=== PATIENT | male | born 1955 | race Caucasian/White ===

== ENCOUNTER 2019-05-07 20:20 | Emergency (ER) | payer OTHER ==
--- NOTE | 2019-05-07 20:53 | EDM.PDOC ---
ED HPI GENERAL MEDICAL PROBLEM - General Chief Complaint: Lower Extremity Injury/Pain Stated Complaint: FALL Time Seen by Provider: 05/07/19 20:40 - History of Present Illness INITIAL COMMENTS - FREE TEXT/NARRATIVE: HISTORY AND PHYSICAL: History of present illness: The patient is a 64-year-old male who presents with complaints of pain to his right foot that occurred on the job at his workplace after he sustained a fall from approximately 10 feet into a tank of fluid impacting his right foot at approximately 4:30, 4 hours ago. The patient says he did not hit his head pass out or blackout and he fell through a cat walk it was over this tank and then he subsequently fell into the tank landing with full weight onto his right foot. He did not hit his head neck or back and has no head neck or back pain and more specifically has no pelvis hip pain or lower back pain. He says he has no proximal right leg knee or hip pain and has only pain in the arch of his right foot when he tries to move it. He denies specific ankle pain or toe pain. He has not taken anything for the pain prior to coming here and he has been ambulating on it. He says that prior to these events he was in his usual state of good health with no systemic issues and currently has no chest pain shortness of breath abdominal pain dizziness or lightheadedness and no other complaints whatsoever other than the pain at the arch of his right foot. He says that his foot is not numb or tingly and when he is just sitting in bed there is no discomfort but only when he puts weight or tries to dorsi or plantar flex his foot. Review of systems: As per history of present illness and below otherwise all systems reviewed and negative. Past medical history: As per history of present illness and as reviewed below otherwise noncontributory. Surgical history: As per history of present illness and as reviewed below otherwise noncontributory. Social history: No reported history of drug or alcohol abuse. Family history: As per history of present illness and as reviewed below otherwise noncontributory. Physical exam: General: Well-developed well-nourished man who is nontoxic and vital signs are noted by me. HEENT: Atraumatic, normocephalic, negative for conjunctival pallor or scleral icterus, mucous membranes moist, throat clear, neck supple, nontender, trachea midline. There are no midline step-offs in his defects of the cervical spine Lungs: Clear to auscultation, breath sounds equal bilaterally, chest nontender. Heart: S1S2, regular rate and rhythm no overt murmurs Abdomen: Soft, nondistended, nontender. Negative for masses or hepatosplenomegaly. Negative for costovertebral tenderness. Pelvis: Stable nontender. There is no lateral hip tenderness or SI joint tenderness posteriorly on the lower back Genitourinary: Deferred. Rectal: Deferred. Extremities: Atraumatic and full range of motion of all extremities with the exception of the right foot where there is tenderness to palpation in the cuboids dorsally and in the arch of the foot but no ecchymosis soft tissue swelling or erythema is seen. The ball of the foot and the toes are intact without tenderness defects or deformities as is the calcaneus and the talus. The proximal ankle has no tenderness defects or deformities as does the proximal tib-fib knee thigh and hip on the right. The patient can dorsi and plantar flex with good strength but says that there is discomfort with this. The Achilles tendon is palpable and intact. The legs are, negative for cords or calf pain. Neurovascular unremarkable. Neuro: Awake, alert, oriented. Cranial nerves II through XII unremarkable. Cerebellum unremarkable. Motor and sensory unremarkable throughout. Exam nonfocal. Back: There are no midline step-offs tenderness defects of the thoracic or lumbar spine and no posterior pelvis tenderness Diagnostics: X-ray right foot and right rib Therapeutics: Ice pack to foot, patient declined pain medication on initial evaluation and upon discharge would like ibuprofen Ortho boot and crutches Impression: Right foot injury Definitive disposition and diagnosis as appropriate pending reevaluation and review of above. R foot Pain Score (Numeric/FACES): 10 - Related Data Allergies Allergy/AdvReac Type Severity Reaction Status Date / Time No Known Allergies Allergy Verified 05/07/19 20:42 Home Meds: Home Meds . [No Known Home Meds] 05/07/19 [History] Past Medical History - Past Health History Medical/Surgical History: Denies Medical/Surgical History Gastrointestinal History: Reports: GERD - Infectious Disease History Infectious Disease History: Reports: Chicken Pox, Measles Social & Family History - Tobacco Use Smoking Status *Q: Former Smoker Used Tobacco, but Quit: Yes Month/Year Tobacco Last Used: 2014 - Caffeine Use Caffeine Use: Reports: Coffee - Recreational Drug Use Recreational Drug Use: No Review of Systems - Review of Systems Review Of Systems: ROS reveals no pertinent complaints other than HPI. ED EXAM, GENERAL - Physical Exam Exam: See Below (See dictation) Course - Vital Signs Last Recorded V/S: Last Vital Signs Temp 36.6 C 05/07/19 20:37 Pulse 98 05/07/19 20:37 Resp 16 05/07/19 20:37 BP 154/79 H 05/07/19 20:37 Pulse Ox 97 05/07/19 20:37 - Orders/Labs/Meds Orders: Active Orders 24 hr Category Date Time Status Ibuprofen [Motrin] Med 05/07/19 21:38 Once 800 mg PO ONETIME ONE DME for Discharge [COMM] Stat Oth 05/07/19 21:36 Ordered Departure - Departure Time of Disposition: 21:39 Disposition: Home, Self-Care 01 Condition: Good Clinical Impression: Right foot injury Qualifiers: Encounter type: initial encounter Qualified Code(s): S99.921A - Unspecified injury of right foot, initial encounter - Discharge Information Referrals: PCP,None [Primary Care Provider] - Forms: ED Department Discharge Additional Instructions: The following information is given to patients seen in the emergency department who are being discharged to home. This information is to outline your options for follow-up care. We provide all patients seen in our emergency department with a follow-up referral. The need for follow-up, as well as the timing and circumstances, are variable depending upon the specifics of your emergency department visit. If you don't have a primary care physician on staff, we will provide you with a referral. We always advise you to contact your personal physician following an emergency department visit to inform them of the circumstance of the visit and for follow-up with them and/or the need for any referrals to a consulting specialist. The emergency department will also refer you to a specialist when appropriate. This referral assures that you have the opportunity for followup care with a specialist. All of these measure are taken in an effort to provide you with optimal care, which includes your followup. Under all circumstances we always encourage you to contact your private physician who remains a resource for coordinating your care. When calling for followup care, please make the office aware that this follow-up is from your recent emergency room visit. If for any reason you are refused follow-up, please contact the emergency department at and ask to speak to the emergency department charge nurse. Dr Juanita Mack [address] [place] [address] [place] [id number] Ice and elevate the area as much as possible and do not weight-bear until you' re followed up by a news specialist. You have been given the name of Dr. Mack who is our local computer system technician and you need to contact his clinic and schedule a follow-up appointment for reevaluation and further care of this injury. Use Crutches and wear ortho boot as directed until you're followed up. Jesenia Velcro straps on the boot and/or remove at sleep times. Use [id number] Tylenol and/or ibuprofen for pain management. Return to ER as needed and as discussed - My Orders Last 24 Hours: My Active Orders 05/07/19 21:36 DME for Discharge [COMM] Stat 05/07/19 21:38 Ibuprofen [Motrin] 800 mg PO ONETIME ONE - Assessment/Plan Last 24 Hours: My Active Orders 05/07/19 21:36 DME for Discharge [COMM] Stat 05/07/19 21:38 Ibuprofen [Motrin] 800 mg PO ONETIME ONE
--- NOTE | 2019-05-07 21:34 | CR ---
INDICATION: Trauma, fell through step. TECHNIQUE: Right foot three views COMPARISON: None FINDINGS AND IMPRESSION: Normal alignment. No acute fracture. No significant soft tissue swelling. Degenerative changes of the 1st MTP joint and hallux sesamoid interval. Dictated by Astrid Beasley MD @ 05/07/2019 9:32:14 PM Dictated by: Astrid Beasley MD @ 05/07/2019 21:32:19 (Electronically Signed)
--- NOTE | 2019-05-07 21:37 | CR ---
INDICATION: Trauma, fell through step. TECHNIQUE: Frontal and lateral views the right tibia fibula COMPARISON: None FINDINGS AND IMPRESSION: No significant soft tissue swelling. The right tibia and fibula are intact. Alignment at the knee and ankle appears anatomic. Dictated by Astrid Beasley MD @ 05/07/2019 9:34:21 PM Dictated by: Astrid Beasley MD @ 05/07/2019 21:34:28 (Electronically Signed)
[2019-05-07] MEDS ORDERED: Ibuprofen 800 MG Tab PO ONE (21:38)
[2019-05-07] MEDS ORDERED: Bacitracin Oint 1 GM U/D Packet ONE (21:55)
[2019-05-07] MEDS ORDERED: Bacitracin Oint 28.35 GM Tube TOP SCH (22:00)
== END 2019-05-07 22:18 | disposition home or self-care (01) ==
LOC: MW.ED 20:20
DX: S99.921A Unspecified injury of right foot, initial encounter (principal); Z87.891 Personal history of nicotine dependence; W16.42XA Fall into unspecified water causing other injury, initial encounter; Y92.89 Other specified places as the place of occurrence of the external cause; Y99.0 Civilian activity done for income or pay
CPT/HCPCS: 73590; 73630; 99283; A9270; 99284